=== PATIENT | male | born 1950 | race Caucasian/White ===

== ENCOUNTER 2023-06-16 15:02 | Outpatient (CLI) | payer MEDICARE, BC, SELFPAY | END 2023-06-16 15:03 | disposition home or self-care (01) | LOC: AMB 06-21 13:35 | PROVIDERS: PCP Family Medicine; Visit Provider Emergency Medicine | DX: S09.90XA Unspecified injury of head, initial encounter (principal); S01.01XA Laceration without foreign body of scalp, initial encounter; V69.3XXA Occupant (driver) (passenger) of heavy transport vehicle injured in unspecified nontraffic accident, initial encounter; Y92.007 Garden or yard of unspecified non-institutional (private) residence as the place of occurrence of the external cause | CPT/HCPCS: A0425; A0433 ==

== ENCOUNTER 2024-05-28 09:10 | Emergency (ER) | payer MEDICARE, BC, SELFPAY ==
[2024-05-28] VITALS (7 sets, daily range): BP systolic 134–135; BP diastolic 82–84; PULSE 64–79; RESP 18; TEMP 36.3; O2SAT 94–98; BMI 33.7
--- NOTE | 2024-05-28 09:35 | CRLHL7_ITS ---
For Patients: As a result of the Century Cures Act, medical imaging exams and procedure reports are released immediately into your electronic medical record. You may view this report before your referring provider. If you have questions, please contact your health care provider. Indication: BILATERAL FLANK PAIN, CONCERN FOR UTI Technique: CT abdomen/pelvis with IV contrast, 132 mL Isovue 370 Comparison: None Findings: Lower thorax: Unremarkable Abdomen/pelvis: Tiny well-circumscribed subcentimeter hypoattenuating lesion in hepatic segment 6, small to characterize, likely benign. No suspicious hepatic lesions. The gallbladder and biliary system are unremarkable. The spleen, pancreas, and bilateral adrenal glands are unremarkable. The kidneys are normal in size and perfused in a normal fashion. No suspicious enhancing renal masses/lesions. Simple appearing renal cysts bilaterally. No renal calculi or hydroureteronephrosis. There is moderate circumferential bladder wall thickening, likely secondary to combination of underdistention and outlet obstruction from moderate to severe prostatomegaly. No pericystic fat stranding. There is no evidence of bowel obstruction or inflammation. No CT evidence of acute appendicitis. Moderate stool burden throughout the colon. No free fluid or free air. No abscess. No abdominopelvic lymphadenopathy. The vasculature is unremarkable. Soft tissue/musculoskeletal: Small fat containing umbilical and left inguinal hernias. No acute fracture or malalignment. Multilevel degenerative changes throughout the spine spinal fusion hardware at L5-S1. Impression: 1. Moderate circumferential bladder wall thickening, which can be seen with cystitis, to correlate with urinalysis, but likely secondary to combination of underdistention and outlet obstruction from moderate to severe prostatomegaly. 2. The kidneys and ureters are within normal limits in appearance with some simple appearing renal cysts bilaterally. No CT evidence of pyelonephritis, no stones within the collecting system, and no hydroureteronephrosis. Please note that all CT scans at this facility use dose modulation, iterative reconstruction, and/or weight-based dosing when appropriate to reduce radiation dose to as low as reasonably achievable. Dictated by Fernando Frankel MD @ 05/28/2024 11:22:04 AM (Electronically Signed)
--- NOTE | 2024-05-28 09:36 | ED.GENADULT ---
HPI - General Adult General Date Seen: 05/28/24 Chief complaint: Flank Pain Stated complaint: Kidney Infection? Time Seen by Provider: 05/28/24 09:12 Source: patient Mode of arrival: ambulatory Limitations: no limitations History of Present Illness HPI narrative: patient is a 73-year-old male presenting to the emergency department for concern of a UTI. He states a week ago he started having sore throat and chest congestion but tested negative for COVID at that time that has improved but he is now having urinary frequency and dysuria along with pain in his bilateral flanks and leg cramping. States yesterday it started having the flank pain and leg cramping and today noticed the urinary discomfort. He has the history of multiple UTIs in the past that quickly turn to sepsis or a want to come in sooner rather than later to be checked out. denies any current abdominal pain, nausea / vomiting, chest pain, shortness of breath, lightheadedness, dizziness, fevers, chills, diarrhea, constipation. Has not had any discharge come from is urethra. Is a nonsmoker. Does state previously about 10 years ago he was told he has a large aortic of but after several test it was determined this was due to his body habitus and not from an aneurysm. no other concerns noted at this time. Related Data Home Medications ?Medication ?Instructions ?Recorded ?Confirmed atorvastatin 40 mg tablet 40 mg PO DAILY 05/28/24 05/28/24 furosemide 20 mg tablet 20 mg PO DAILY 05/28/24 05/28/24 lisinopril 20 1 tab PO DAILY 05/28/24 05/28/24 mg-hydrochlorothiazide 12.5 mg tablet omeprazole 20 mg capsule,delayed 20 mg PO DAILY 05/28/24 05/28/24 release sumatriptan succinate 50 mg tablet 50 mg PO BID migraine 05/28/24 05/28/24 Allergies Allergy/AdvReac Type Severity Reaction Status Date / Time hydrocodone Allergy Intermediate Verified 05/28/24 11:03 Review of Systems Status of ROS: Reports: 10 or more systems reviewed and unremarkable except as noted in History and below Exam Narrative: Exam Narrative: Const: Well-nourished, Well-developed, in mild distress Eyes: PERRL, no conjunctival injection, and symmetrical lids HENT: Atraumatic external nose and ears. Moist mucous membranes. Neck: Symmetric, trachea midline, No thyromegaly. CVS: RRR, No murmurs or gallops. Peripheral pulses 2+ and equal in all extremities RESP: Unlabored respiratory effort. Clear to auscultation bilaterally. GI: Nontender/Nondistended, No rebound or guarding. MSK:Extremities w/o deformity, Normal Active ROM Skin: Warm, Dry. No rashes or lesions. Neuro: Normal Muscle tone, No focal neurological deficits. Psych: Awake, Alert, & Oriented x3. Appropriate mood and affect. Const: Vital Signs, click to edit/add: Vital Signs - 24 hr 05/28/24 09:18 05/28/24 10:39 05/28/24 10:45 Temperature 97.3 F L Pulse Rate 73 70 Pulse Rate [Right Pulse Oximeter] 79 Respiratory Rate 18 Blood Pressure Blood Pressure [Ri ght Upper Arm] 134/82 Pulse Oximetry 97 98 96 Oxygen Delivery Me thod Room Air 05/28/24 11:00 05/28/24 11:15 05/28/24 11:30 Temperature Pulse Rate 66 69 64 Pulse Rate [Right Pulse Oximeter] Respiratory Rate Blood Pressure Blood Pressure [Ri ght Upper Arm] Pulse Oximetry 96 94 96 Oxygen Delivery Me thod 05/28/24 11:37 Temperature Pulse Rate 66 Pulse Rate [Right Pulse Oximeter] Respiratory Rate Blood Pressure 135/84 Blood Pressure [Ri ght Upper Arm] Pulse Oximetry 96 Oxygen Delivery Me thod Course Vital Signs Vital signs: Initial Vital Signs Temperature 97.3 F L 05/28/24 09:18 Temperature Source Temporal Artery Scan 05/28/24 09:18 Pulse Rate 79 05/28/24 09:18 Pulse Rhythm Regular 05/28/24 09:18 Respiratory Rate 18 05/28/24 09:18 Blood Pressure 134/82 05/28/24 09:18 Blood Pressure Mean 99 05/28/24 09:18 Blood Pressure Position Sitting 05/28/24 09:18 Pulse Oximetry 97 05/28/24 09:18 Oxygen Delivery Method Room Air 05/28/24 09:18 Vital Signs Temperature 97.3 F L 05/28/24 09:18 Pulse Rate 79 05/28/24 09:18 Respiratory Rate 18 05/28/24 09:18 Blood Pressure 134/82 05/28/24 09:18 Pulse Oximetry 97 05/28/24 09:18 Oxygen Delivery Method Room Air 05/28/24 09:18 Temperature 97.3 F L 05/28/24 09:18 Pulse Rate 66 05/28/24 11:37 Respiratory Rate 18 05/28/24 09:18 Blood Pressure 135/84 05/28/24 11:37 Pulse Oximetry 96 05/28/24 11:37 Oxygen Delivery Method Room Air 05/28/24 09:18 Medical Decision Making MDM Narrative Medical decision making narrative: Patient is 73-year-old male presenting for concerns of a UTI. With his bilateral flank pain I did consider on aortic aneurysm. He is otherwise stable vital signs and this does not seem likely to be causing his symptoms. Will send him for a CT scan with IV contrast 1st to evaluate for signs of pyelonephritis and also look for possible bilateral kidney stones. he describes the pain is more dull in nature so kidney stone seem unlikely. With no clear abdominal symptoms SBO, appendicitis, gastritis, pancreatitis, gallbladder disease seem much less likely. Does not require resting pain medication or nausea medicine at this time. Could also be a abnormal presentation for ACS so I a troponin and EKG ordered. Will also order lipase, urinalysis, CBC, CMP. Lab work returned showing no concerning abnormalities. He did urinate with for us to give a urine sample and he did not have urinary discomfort at that time. EKG shows no concerning abnormalities. Concerning symptoms have been going on for over a day I do not believe repeat troponin is necessary. CT scan reviewed by myself and the radiologist shows no concerning abnormalities. I was initially going to order an aortic ultrasound but looking at the CT scanning and I do not see any appearance of aneurysm and no aneurysm was noted on the CT read. Do not believe this is AAA causing his symptoms. Especially considering he has normal vital signs. Patient will be discharged he is agreeable to this plan. Lab Data Labs: Lab Results 05/28/24 05/28/24 Range/Units 09:36 09:40 WBC 7.17 (4.50-11.00) K/uL RBC 5.18 (4.30-5.90) m/uL Hgb 14.2 (13.5-17.5) gm/dL Hct 44.1 (37.0-53.0) % MCV 85 (80-100) fL MCH 27 (26-34) pg MCHC 32 (32-36) gm/dL RDW Coeff of Kerri 14.8 (11.5-15.5) % Plt Count 245 (140-440) K/uL Neut % (Auto) 79.5 H (42.0-72.0) % Lymph % (Auto) 10.5 L (20-44) % [place] % (Auto) 6.0 (0.0-11.0) % Eos % (Auto) 3.6 (0.0-7.0) % Baso % (Auto) 0.1 (0.0-3.0) % Neut # (Auto) 5.70 (1.7-7.0) K/uL Lymph # (Auto) 0.80 L (0.90-2.90) K/uL [place] # (Auto) 0.40 (0.00-0.90) K/UL Eos # (Auto) 0.26 (0.00-0.50) K/uL Baso # (Auto) 0.01 (0.00-0.30) K/uL Abs Immat Gran (auto) 0.02 (0.00-0.30) K/uL Imm/Tot Granulo (auto) 0.3 % Sodium 135 (135-149) mmol/L Potassium 4.1 (3.6-5.1) mmol/L Chloride 100 (96-114) mmol/L Carbon Dioxide 29 (20-32) mmol/L Anion Gap 6 L (7-15) mEq/L BUN 23 (7-30) mg/dL Creatinine 1.0 (0.5-1.5) mg/dL Estimated Creat Clear 78.63 Estimated GFR 79 ml/min Glucose 122 H (60-115) mg/dL Calcium 9.4 (8.4-10.6) mg/dL Total Bilirubin 0.6 (0.1-1.5) mg/dL AST 36 H (12-35) U/L ALT 39 (4-50) U/L Alkaline Phosphatase 124 (40-150) U/L Total Protein 7.7 (6.0-8.3) g/dL Albumin 4.2 (3.3-5.0) g/dL Lipase 64 (23-300) U/L Urine Color Yellow (Yellow) Urine Appearance Clear (Clear) Urine pH 6.5 (5.0-8.5) Ur Specific [place] 1.015 (1.000-1.030) Urine Protein Negative (Negative) Urine Glucose (UA) Negative (Negative) Urine Ketones Negative (Negative) Urine Blood 1+ A (Negative) Urine Nitrite Negative (Negative) Urine Bilirubin Negative (Negative) Urine Urobilinogen 0.2 (0.2-1.0) Ur Leukocyte Esterase Negative (Negative) Urine RBC 2-5 A (0-2) Urine WBC 0-2 (0-5) Ur Squamous Epith Cells None (None-Few) Urine Bacteria None (None) POC Troponin I 0.01 (0.01-0.04) ng/ml Imaging Data CT scan abdomen pelvis: Attestation: I have reviewed the pertinent imaging results. Radiologist's impression: 1. Moderate circumferential bladder wall thickening, which can be seen with cystitis, to correlate with urinalysis, but likely secondary to combination of underdistention and outlet obstruction from moderate to severe prostatomegaly. 2. The kidneys and ureters are within normal limits in appearance with some simple appearing renal cysts bilaterally. No CT evidence of pyelonephritis, no stones within the collecting system, and no hydroureteronephrosis. Please note that all CT scans at this facility use dose modulation, iterative reconstruction, and/or weight-based dosing when appropriate to reduce radiation dose to as low as reasonably achievable. Dictated by Fernando Frankel MD @ 05/28/2024 11:22:04 AM ECG Data Attestation: I personally reviewed and interpreted this ECG as follows: Prior ECG tracings: not available for review Interpretation: Normal sinus rhythm with rate 72 beats per minute, left axis deviation, normal intervals, normal axis, no ST or T-wave abnormalities Discharge Plan Discharge Clinical Impression: Bilateral flank pain Patient Disposition: Home, Self-Care Condition: Stable Instructions: Flank Pain (ED) Additional Instructions: I am not sure was causing symptoms at this time but I do recommend follow-up with her primary care provider if they persist. But if you notice symptoms worsen and return come back to the emergency department for re-evaluation Prescriptions: No Action atorvastatin 40 mg tablet 40 mg PO DAILY lisinopril-hydrochlorothiazide 20-12.5 mg tablet 1 tab PO DAILY sumatriptan succinate 50 mg tablet 50 mg PO BID omeprazole 20 mg capsule,delayed release(DR/EC) 20 mg PO DAILY furosemide 20 mg tablet 20 mg PO DAILY Follow Up/Referrals: Tello Carballo MD [Primary Care Provider] - Stand Alone Forms: [employer] Info Instructions
[2024-05-28 09:52] LABS: Basophils Absolute Auto 0.01 K/uL (0.00-0.30); Basophils Percent Auto 0.1 % (0.0-3.0); Eosinophils Absolute Auto 0.26 K/uL (0.00-0.50); Eosinophils Percent Auto 3.6 % (0.0-7.0); Hematocrit 44.1 % (37.0-53.0); Hemoglobin* 14.2 gm/dL (13.5-17.5); Immature Granulocytes Abs Auto 0.02 K/uL (0.00-0.30); Immature Granulocytes Pct Auto 0.3 %; Lymphocytes Percent Auto 10.5 % (20-44); Mean Corpuscular HGB Conc 32 gm/dL (32-36); Mean Corpuscular Hemoglobin 27 pg (26-34); Mean Corpuscular Volume 85 fL (80-100); Neutrophils Percent Auto 79.5 % (42.0-72.0); Platelet Count* 245 K/uL (140-440); RDW Coefficient of Variation % 14.8 % (11.5-15.5); Red Blood Count 5.18 m/uL (4.30-5.90); White Blood Count* 7.17 K/uL (4.50-11.00)
[2024-05-28 09:56] LABS: Slide Review Reflex No
[2024-05-28 10:04] LABS: Albumin* 4.2 g/dL (3.3-5.0)
[2024-05-28 10:05] LABS: Chloride* 100 mmol/L (96-114); Potassium* 4.1 mmol/L (3.6-5.1); Sodium* 135 mmol/L (135-149)
[2024-05-28 10:07] LABS: Anion Gap 6 mEq/L (7-15); Bilirubin Total* 0.6 mg/dL (0.1-1.5); Carbon Dioxide* 29 mmol/L (20-32); Est. Creatinine Clearance* 78.63; Estimated Glomerular Filt Rate 79 ml/min
[2024-05-28 10:08] LABS: Alanine Aminotransferase* 39 U/L (4-50); Alkaline Phosphatase* 124 U/L (40-150); Aspartate Amino Transferase* 36 U/L (12-35); Blood Urea Nitrogen* 23 mg/dL (7-30); Calcium* 9.4 mg/dL (8.4-10.6); Glucose* 122 mg/dL (60-115); Lipase* 64 U/L (23-300); Total Protein* 7.7 g/dL (6.0-8.3)
[2024-05-28 10:15] LABS: Troponin, Point-of-Care* 0.01 ng/ml (0.01-0.04)
[2024-05-28 10:46] LABS: Appearance Urine Clear (Clear); Bilirubin Urine Negative (Negative); Blood Urine 1+ (Negative); Color Urine Yellow (Yellow); Glucose Urine Negative (Negative); Ketones Urine Negative (Negative); Leukocyte Esterase Urine Negative (Negative); Nitrite Urine Negative (Negative); Protein Urine Negative (Negative); Specific Gravity Urine 1.015 (1.000-1.030); Urobilinogen Urine 0.2 (0.2-1.0); pH Urine 6.5 (5.0-8.5)
[2024-05-28 11:05] LABS: WBC Urine 0-2 (0-5)
== END 2024-05-28 12:41 | disposition home or self-care (01) ==
PROVIDERS: Emergency Provider Student in an Organized Health Care Education/Training Program; PCP Family Medicine
DX: R10.9 Unspecified abdominal pain (principal)
CPT/HCPCS: 36415; 74177; 80053; 81001; 83690; 84484; 85025; 93005; 99283; 99284; Q9967